=== PATIENT | male | born 1980 | race Two or more races ===

== ENCOUNTER 2025-03-09 10:49 | Emergency (ER) | payer SELFPAY ==
[~2025-03-09] VITALS: Ht 180.3 cm; Wt 101.4 kg
[2025-03-09 10:52] VITALS: BP 134/81; PULSE 88; RESP 15; TEMP 98.2; O2SAT 98
--- NOTE | 2025-03-09 12:06 | ED.PDOC ---
History of Present Illness HPI Comments 44 year old male requesting work clearance for new employment Chief Complaint: Abnormal LAB's Time Seen by MD: 11:04 Reviewed Notes: Nurses Notes, Medications, Allergies Allergies: Coded Allergies: NO KNOWN ALLERGIES (Unverified , 03/09/25) Information Source: Patient Mode of Arrival: Ambulatory Physical Exam General Appearance: No Apparent Distress, Normal HEENT: Normal ENT Inspection, Pharynx Normal, TMs Normal Neck: Full Range of Motion, Non-Tender, Normal, Normal Inspection Respiratory: Chest Non-Tender, Lungs Clear, No Accessory Muscle Use, No Respiratory Distress, Normal Breath Sounds Cardiovascular: No Edema, No JVD, No Murmur, No Gallop, Normal Peripheral Pulses, Regular Rate/Rhythm Breast Exam: Deferred Gastrointestinal: No Organomegaly, Non Tender, No Pulsatile Mass, Normal Bowel Sounds, Soft Genitalia: Deferred Pelvic: Deferred Rectal: Deferred Extremities: No calf tenderness, Normal capillary refill, Normal inspection, Normal range of motion, Non-tender, No pedal edema Musculoskeletal : Apperance: Normal Neurologic: Alert, 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 Was a procedure done?: No Differential Dx Considerations may include: clearance X-Ray, Labs, Meds, VS Vital Signs Date Time Temp Pulse Resp B/P (MAP) Pulse Ox O2 Delivery O2 Flow Rate FiO2 03/09/25 10:52 98.2 88 15 134/81 98 98.2 X-Ray, Labs, Meds, VS Comment Follow-up with PCP in 2 to 3 days Patient verbalized understanding and agreed to treatment plan Vital signs stable, afebrile, no acute distress noted Patient ambulatory with strong steady gait Patient is aware that the purpose of this visit was for an acute medical emergency requiring emergent stabilization. Chronic conditions, including malignancies have not been ruled out. Patient is instructed to follow up with PCP as directed and discharge instructions for continued care and workup. Time of 1ST Reevaluation: 12:00 Reevaluation 1ST: Improved Patient Education/Counseling: Diagnosis, Treatment Family Education/Counseling: Diagnosis, Treatment SEPSIS Sepsis Screen Date sepsis recognized/suspect: Mar 09, 2025 Time Sepsis recognized/suspect: 1053 Recent Procedure: No On Antibiotic Therapy: No Respiratory Rate >20: No Heart Rate >90: No Temp<36 C (96.8 F) or >38.3 C: No SBP <90 or MAP <65 mmHG: No New Acute Mental Status Change: No Is the patient on CPAP, BIPAP,: No Vital Signs Date Time Temp Pulse Resp B/P (MAP) Pulse Ox O2 Delivery O2 Flow Rate FiO2 03/09/25 10:52 98.2 88 15 134/81 98 98.2 Departure 1 Departure Time of Disposition: 12:00 Impression: Primary Impression: Wellness examination Disposition: HOME / SELF CARE / HOMELESS Condition: Stable Discharged With: Self Critical Care Note Critical Care Time?: No Stability Stability form required: No Heart Score Heart Score: Heart Score Response (Comments) Value History N/A 0 EKG N/A 0 Age N/A 0 Risk Factors N/A 0 Troponin N/A 0 Total 0 DEWEY WOLF NP Mar 09, 2025 12:06
== END 2025-03-09 12:17 | disposition home or self-care (01) ==
LOC: ER 10:49
DX: R79.9 Abnormal finding of blood chemistry, unspecified (principal)

== ENCOUNTER 2025-03-17 22:41 | Inpatient (IN) | payer MEDICAID ==
[~2025-03-17] VITALS: Ht 182.9 cm; Wt 101.4 kg
[2025-03-18] VITALS (7 sets, daily range): BP systolic 121–143; BP diastolic 70–88; PULSE 65–84; RESP 15–20; TEMP 98.1–100; O2SAT 93–97
[2025-03-18] MEDS: SODIUM CHLORIDE 0.9% 1,000 ML IV ONE ×2 (01:45→10:23)
[2025-03-18 02:03] LABS: Hematocrit 44.9 % (41.0-53.0); Hemoglobin 15.0 g/dL (13.5-17.5); Mean Corpuscular Hemoglobin 29.7 pg (28.0-32.0); Mean Corpuscular Volume 88.6 fL (80.0-100.0); Nucleated Red Blood Cells % 0.0 %
[2025-03-18 02:16] LABS: Alanine Aminotransferase 20 U/L (7-40); Albumin 4.7 g/dL (3.2-4.8); Anion Gap 5 (5-15); BUN/Creatinine Ratio 6.1 (10.0-20.0); Bilirubin, Total 0.4 mg/dL (0.2-1.0); Blood Urea Nitrogen 10 mg/dL (9-23); Calcium 9.4 mg/dL (8.7-10.4); Carbon Dioxide 26 mmol/L (20-31); Potassium 4.6 mmol/L (3.5-5.1); Sodium 139 mmol/L (136-145)
[2025-03-18 02:20] LABS: Alkaline Phosphatase 130 U/L (46-116); Chloride 108 mmol/L (98-107); Glucose 111 mg/dL (74-106); Lipase 60 U/L (12-53); Total Protein 8.9 g/dL (5.7-8.2)
--- NOTE | 2025-03-18 02:33 | ED.PDOC ---
GI ASSESSMENT HPI Comments HPI from visit on 03/17/25 This is a 44-year-old male who presents to the ED with a chief complaint of constipation for X4 days. Patient denies any medical history or this happening before. Patient reports taking laxatives and suppositories, with no relief. Denies fevers chills nausea vomiting HPI: 44 year old male presents to the emergency department with a chief complaint of constipation onset 5 days. Patient was seen in this ED yesterday, diagnosed with Colitis, was going to be admitted, left AMA. He was given medication, was able to have a small bowel movement, dark brown. He is currently experiencing rectal pain. Denies nausea, vomiting, diarrhea, fever, chills, dizziness, chest pain, shortness of breath, melena. No other symptoms or modifying factors present at this time. Initial Vitals BP: 142/88 HR: 87 RR: 20 O2: 98% Temp: 98.2F Past Medical History: Denies Past Surgical History: Denies Social History: Denies ETOH, smoking, and drug use. Medications: Denies Allergies: MANNY ZARAGOZA HPI: Poor Historian. REVIEW OF SYSTEMS: CONSTITUTIONAL: Denies acute: fever, diaphoresis, chills, generalized weakness. HEAD: Denies acute: headache, photophobia Eyes: Denies acute: Double vision, vision loss, eye pain, eye discharge. EARS: Denies acute: tinnitus, hearing loss, ear discharge, ear pain, THROAT: Denies acute: sore throat, swelling, difficulty swallowing , pain with swallowing, change in voice. NECK: Denies acute: neck pain, neck swelling, stiff neck. HEART: Denies acute : chest pain, palpitations, LUNGS: Denies acute: SOB, wheezing, cough, hemoptysis ABDOMEN: Denies acute: Nausea, Vomiting, diarrhea, melena , hematemesis, hematochezia SKIN: Denies acute: rash, redness, lesions, itchiness. EXTREMITIES: Denies acute: calf pain, numbness, tingling, weakness, denies pain in extremity. Denies acute: Low back pain. Neuro: Denies acute: focal neurological deficit, motor or sensory focal neurological deficit, tremors, seizure like activity, confusion, dizziness, change in mental status, loss of bowel or bladder function, cauda equina like symptoms. : Denies acute: dysuria, hematuria, flank pain, increase in urinary frequency. PSYCH: Denies acute: hallucination, suicidal ideation, homicidal ideation. PHYSICAL EXAM: General: ----moderate----acute distress, awake and alert. Head: normocephalic, atraumatic. Neck: supple, trachea is midline, no swelling. Throat: Normal phonation. Eyes:, no erythema, no purulent discharge, no proptosis, no icterus. Heart: regular rate, regular rhythm, no significant murmur appreciated. Lungs: no apparent respiratory distress, Able to speak in full sentences. No wheezing, no rhonchi, no crackles. No stridors Clear to auscultation bilaterally. Abdomen: non tender to palpation, non distended, soft, no guarding, no rebound, + bowel sounds. Patient states however that his pain is in the rectal area. Neuro: Awake, Alert, oriented to name, self, situation, follows commands GCS=15. Speech is normal. Skin: no petechia, no purpura, no cyanosis, non-pale, not jaundice. Lower extremities: --no - Pitting edema no deformity, no focal swelling, no calf TTP. Makes eye contact. moves all four extremities. Face: no apparent facial droop. Ambulating in the ED independently. ED COURSE: DISCLAIMER: This medical document was created using an electronic medical record system with voice recognition software and computerized dictation system. Although this document has been carefully reviewed, there might still be some phonetic and ty pographical errors. Occasional wrong-word or "sound-alike" substitutions may have occurred due to the inherent limitations of voice recognition software. These areas are purely typographical due to imperfections of the software programs and do not reflect any compromise in the patient's medical care. Please read the chart carefully and recognize, using context, where these substitutions have occurred. Chief Complaint: Constipation Time Seen by MD: 02:35 Reviewed Notes: Allergies Allergies: Coded Allergies: NO KNOWN ALLERGIES (Unverified , 03/16/25) Information Source: Patient Mode of Arrival: Ambulatory Timing: Days Duration: Since onset Past Medical History PAST MEDICAL HISTORY: Denies Surgical History: Denies all surgeries Family History Family History: Reviewed,noncontributory to illness, No family hx of Cancer, No family hx of DM, No family hx of Heart reuben, No family hx of HTN, No family hx ofKidney reuben, No family hx of Liver reuben, No family hx of Lung reuben, No family hx of Stroke Social History Smoker: Non-Smoker Alcohol: Denies ETOH Use Drugs: Denies Drug Use Lives In: Home Was a procedure done? Was a procedure done?: No GI differential Dx Differential Diagnosis: Other (DDX include Diverticulitis, colitis, gastroenteritis, acute abdomen, bowel obstruction, enteritis, constipation, volvulus, , intraAbdominal mass/neoplasm, Inflammatory bowel disease, ischemic bowel, gastroparesis, narcotics abuse/dependency, fecal impaction, low fiber intake.) X-Ray, Labs, Meds, VS Vital Signs Date Time Temp Pulse Resp B/P (MAP) Pulse Ox O2 Delivery O2 Flow Rate FiO2 03/18/25 04:42 99.1 75 20 120/73 (89) 97 99.1 03/17/25 22:46 98.2 87 20 142/88 98 98.2 Lab Test 03/18/25 01:40 Range/Units White Blood Count 17.5 H 4.4-10.8 10^3/uL Red Blood Count 5.07 4.5-5.90 10^6/uL Hemoglobin 15.0 13.5-17.5 g/dL Hematocrit 44.9 41.0-53.0 % Mean Corpuscular Volume 88.6 80.0-100.0 fL Mean Corpuscular Hemoglobin 29.7 28.0-32.0 pg Mean Corpuscular Hemoglobin Concent 33.5 32.0-36.0 g/dL Red Cell Distribution Width 14.9 H 11.8-14.3 % Platelet Count 267 140-450 10^3/uL Mean Platelet Volume 8.6 6.9-10.8 fL Neutrophils (%) (Auto) 76.5 37.0-80.0 % Lymphocytes (%) (Auto) 13.3 10.0-50.0 % Monocytes (%) (Auto) 9.9 0.0-12.0 % Eosinophils (%) (Auto) 0.1 0.0-7.0 % Basophils (%) (Auto) 0.2 0.0-2.0 % Neutrophils # (Auto) 13.4 H 1.6-8.6 10 ^3/uL Lymphocytes # (Auto) 2.3 0.4-5.4 10 ^3/uL Monocytes # (Auto) 1.7 H 0-1.3 10 ^3/uL Eosinophils # (Auto) 0 0-0.8 10 ^3/uL Basophils # (Auto) 0 0-0.2 10 ^3/uL Nucleated Red Blood Cells 0.0 % Sodium Level 139 136-145 mmol/L Potassium Level 4.6 3.5-5.1 mmol/L Chloride Level 108 H 98-107 mmol/L Carbon Dioxide Level 26 20-31 mmol/L Anion Gap 5 5-15 Blood Urea Nitrogen 10 9-23 mg/dL Creatinine 1.63 H 0.700-1.30 mg/dL Glomerular Filtration Rate Calc 54 >90 mL/min BUN/Creatinine Ratio 6.1 L 10.0-20.0 Serum Glucose 111 H 74-106 mg/dL Lactic Acid Level 1.0 0.4-2.0 mmol/L Calcium Level 9.4 8.7-10.4 mg/dL Total Bilirubin 0.4 0.2-1.0 mg/dL Aspartate Amino Transferase (AST) 17 13-40 U/L Alanine Aminotransferase (ALT) 20 7-40 U/L Alkaline Phosphatase 130 H 46-116 U/L Total Protein 8.9 H 5.7-8.2 g/dL Albumin 4.7 3.2-4.8 g/dL Lipase 60 H 12-53 U/L Current Medications Medications (Trade) Dose Ordered Sig/David Route Start Time Stop Time Status Last Admin Sodium Chloride 1,000 ml @ 1,000 mls/hr Q1H ONCE IV 03/18/25 01:45 03/18/25 02:44 DC 03/18/25 01:45 Metronidazole 100 ml @ 100 mls/hr ONCE ONCE IV 03/18/25 03:00 03/18/25 03:59 DC 03/18/25 03:[address] [address] Ph: [phone] DIAGNOSTIC IMAGING Diagnostic Imaging Report : [id number] Signed PATIENT: JAN ZARAGOZA ACCT: [id number] UNIT: [id number] : 1980 LOC: ER ROOM / BED: / AGE / SEX: 44 / M ADM STATUS: REG ER SERVICE [id number] ORDERING PHYSICIAN: DEWEY WOLF NP PROCEDURE(s): ABPL - CT AB PEL WO CON-NO ORAL OR IV REASON: Constipation and rectal pain ORDER NUMBER(s): [id number], ACCESSION NUMBER(s): [id number] CLINICAL INFORMATION: 44 years old, Male; Constipation and rectal pain. TECHNIQUE: Axial CT images of the abdomen and pelvis were obtained without IV contrast. Coronal and sagittal reformatted images were obtained, reviewed, and stored. Evaluation of the parenchymal organs is limited without IV contrast. Evaluation of the bowel and mesentery is limited without oral contrast. All CT scans at this medical facility are performed using dose modulation techniques as appropriate to a performed exam including the following: Automated exposure control was utilized; adjustment of the MA and/or KV according to patient size; and use of iterative reconstruction technique. CTDIvol = 11.85 mGy DLP = 655.97 mGy-cm COMPARISON: None FINDINGS: Lung bases: Lung bases are clear. Liver: Multiple low-density lesions are seen in the liver, the largest of which are fluid density and likely benign cysts. The smaller lesions are also likely cysts, but too small to characterize. Biliary: No calcified gallstones or biliary ductal dilatation. Spleen: Unremarkable. Pancreas: Grossly unremarkable in its noncontrast enhanced appearance. Adrenal glands: Unremarkable. No mass. Kidneys: No hydronephrosis. No renal or ureteral calculi. Aorta/Vascular: Moderate atherosclerotic calcification. No abdominal aortic aneurysm. Retroperitoneum: No mass or lymphadenopathy. Bowel/mesentery: No small bowel obstruction. No free air or free fluid. Appendix is visualized and appears unremarkable. There is mild wall thickening and adjacent vascular engorgement involving the cecum, ascending colon, hepatic flexure, and transverse colon, suspected colitis in the appropriate clinical setting. There are also areas of fatty replacement in the wall of the colon, which may be sequela of previous inflammation. There is moderate stool in the more distal portions of the colon and a few scattered colonic diverticula without adjacent inflammatory changes to suggest diverticulitis. Pelvic organs: Grossly unremarkable. Bladder: Unremarkable. No mass. Abdominal wall: Small fat containing umbilical hernia. Bones: No acute fracture or suspicious intraosseous lesion. IMPRESSION: 1. Findings suggesting colitis involving the cecum, ascending colon, hepatic flexure, and transverse colon as described above. May be infectious or inflammatory in nature. Correlate with clinical findings. 2. Additional nonacute findings as detailed above. ATED BY: CESAR RENEE DO DICTATED DATE/TIME: 03/17/25836 SIGNED BY: CESAR RENEE DO SIGNED DATE/TIME: 03/17/25836 CC: Time of 1ST Reevaluation: 03:05 Reevaluation 1ST: Unchanged Patient Education/Counseling: Diagnosis, Treatment Family Education/Counseling: No Family Present Comments MDM: patient presented with the above HPI.---abdominal pain/constipation---workup was initiated. patient was found with the above mentioned diagnosis. the following medications were ordered: please refer to order lists of meds and tests obtained by myself Dr. Pan. Patient ED course and VS have been stabilized. Patient has been reassessed in the ED and remained in a stable condition. Pertinent incidental findings were discussed with the patient and/or family. Patient/family voices understanding and is agreeable with plan. Patient has been observed in the ED adequate length of time to insure improvement/stability. Escalation of care considered: Consideration of escalation to observation or admission Antibiotics initiated. Patient was ADMITTED to the medicine team for further evaluation and treatment of their presentation. All the reports of any imaging studies that were ordered by myself were reviewed by myself. Departure 1 Departure Time of Disposition: 02:53 Impression: Primary Impression: Colitis Additional Impression: Leukocytosis Disposition: ADMITTED INPATIENT Admit to: Tele Condition: Guarded Discharged With: Self Critical Care Note Critical Care Time?: Yes (35 min-critical care time only) I personally scribed for SID PAN DO ([email or web address]) on 03/18/25 at 02:33. Electronically submitted by Marian You ([email or web address]). I personally scribed for SID PAN DO ([email or web address]) on 03/18/25 at 02:56. Electronically submitted by Marian You ([email or web address]). SDI PAN DO Mar 18, 2025 02:33
[2025-03-18] MEDS: fentaNYL CITRATE 100 MCG/2 ML VL IV ONE (05:39)
[2025-03-18 06:13] LABS: Urine Protein, UAD TRACE (Negative)
[2025-03-18] MEDS: MORPHINE SULFATE INJ 2 MG/ml SYRG IV ONE (09:39)
[2025-03-18] MEDS: GLYCERIN ADULT RECTAL SUPP PR ONE (09:39)
[2025-03-18] MEDS ORDERED: ONDANSETRON HCL 4 MG/2 ML VIAL IV PRN (09:45)
[2025-03-18] MEDS ORDERED: DOCUSATE SOD 100 MG CAP PO PRN (09:45)
[2025-03-18] MEDS ORDERED: MORPHINE SULFATE INJ 2 MG/ml SYRG IV PRN (09:45)
--- NOTE | 2025-03-18 09:50 | DVHHP2 ---
History of Present Illness Reason for Visit: abdominal/rectal pain History of Present Illness Damon Morales is a 44-year-old male with no significant past medical history who came to the hospital for abdominal and rectal pain. Patient was seen here yesterday for the same complaint, but had to leave AMA due to needing to take care of his children. He came back due to the pain worsening. CT scan compleeted yesterday shows colitis and constipation. Patient states colitis is a new diagnosis for him. Past Surgical History: None Smoke: <1 pack per day ALCOHOL: none Drugs: None Lives: with Family Domestic Violence: Neg Review of Systems Constitutional: No: Fever, Chills, Sweats, Weakness, Malaise, Other Eyes: No: Pain, Vision change, Conjunctivae inflammation, Eyelid inflammation, Other, Redness ENT: No: Ear pain, Ear discharge, Nose pain, Nose discharge, Nose congestion, Mouth pain, Mouth swelling, Throat pain, Throat swelling, Other Respiratory: No: Cough, Dry, Shortness of breath, SOB with excertion, Wheezing, Hemoptysis, Pleuritic Pain, Sputum, Wheezing, Other Cardiovascular: No: Chest Pain, Palpitations, Orthopnea, Paroxysmal Noc. Dyspnea, Edema, Lt Headedness, Other Gastrointestinal: Abdominal Pain (C/O severe rectal and pelvic pain), Constipation; No: Nausea, Vomiting, Diarrhea, Melena, Hematochezia, Other Genitourinary: No Dysuria, No Frequency, No Incontinence, No Hematuria, No Retention, No Other Musculoskeletal: No: other, neck pain, shoulder pain, arm pain, back pain, hand pain, leg pain, foot pain Skin: No: Rash, Lesions, Jaundice, Bruising, Other Neurological: No: Weakness, Numbness, Incoordination, Change in speech, Confusion, Seizures, Other Allergies: Coded Allergies: NO KNOWN ALLERGIES (Unverified , 03/16/25) Medications Current Medications Medications Dose Ordered Sig/David Route Start Time Stop Time Status Last Admin Dose Admin Acetaminophen/ Hydrocodone Bitart 1 tab Q4HP PRN PO 03/18/25 09:45 UNV Ondansetron HCl 4 mg Q4HP PRN IV 03/18/25 09:45 UNV Exam Vital Signs Vital Signs Date Time Temp Pulse Resp B/P (MAP) Pulse Ox O2 Delivery O2 Flow Rate FiO2 03/18/25 09:39 81 18 119/65 03/18/25 06:32 100 03/18/25 05:00 Room Air* 0 21 03/18/25 04:42 99.1 99.1 General Appearance: Alert, Oriented X3, Cooperative, moderate distress HEENT: Atraumatic, PERRLA Respiratory: Clear to auscultation, Normal air movement Cardiovascular: Regular rate, Normal S1, Normal S2 Abdominal: Normal bowel sounds, Other (C/O severe rectal and pelvic pain) Extremities: No clubbing, No cyanosis, No edema, Normal pulses, No tenderness/swelling Skin: No rashes, No significant lesion Neuro: Normal gait, Normal speech, Strength at 5/5 X4 ext Psych/Mental Status: Mental status NL, Mood NL Labs/Xrays Labs Test 03/18/25 05:55 03/18/25 01:40 Range/Units Urine Color Light-yellow Yellow Urine Clarity Clear Clear Urine pH 6.0 5.0-9.0 Urine Specific [place] 1.013 1.001-1.035 Urine Protein Trace H Negative Urine Ketones Negative Negative Urine Blood Negative Negative /uL Urine Nitrite Negative Negative Urine Bilirubin Negative Negative Urine Urobilinogen Normal Negative mg/dL Urine Leukocyte Esterase Negative Negative /uL Urine RBC <1 0 - 3 /hpf Urine Microscopic WBC 16 H 0-3 /HPF Urine Squamous Epithelial Cells Few <5 /hpf Urine Bacteria None seen None Seen /hpf Urine Mucus Few None Seen Urine Glucose Normal Normal mg/dL White Blood Count 17.5 H 4.4-10.8 10^3/uL Red Blood Count 5.07 4.5-5.90 10^6/uL Hemoglobin 15.0 13.5-17.5 g/dL Hematocrit 44.9 41.0-53.0 % Mean Corpuscular Volume 88.6 80.0-100.0 fL Mean Corpuscular Hemoglobin 29.7 28.0-32.0 pg Mean Corpuscular Hemoglobin Concent 33.5 32.0-36.0 g/dL Red Cell Distribution Width 14.9 H 11.8-14.3 % Platelet Count 267 140-450 10^3/uL Mean Platelet Volume 8.6 6.9-10.8 fL Neutrophils (%) (Auto) 76.5 37.0-80.0 % Lymphocytes (%) (Auto) 13.3 10.0-50.0 % Monocytes (%) (Auto) 9.9 0.0-12.0 % Eosinophils (%) (Auto) 0.1 0.0-7.0 % Basophils (%) (Auto) 0.2 0.0-2.0 % Neutrophils # (Auto) 13.4 H 1.6-8.6 10 ^3/uL Lymphocytes # (Auto) 2.3 0.4-5.4 10 ^3/uL Monocytes # (Auto) 1.7 H 0-1.3 10 ^3/uL Eosinophils # (Auto) 0 0-0.8 10 ^3/uL Basophils # (Auto) 0 0-0.2 10 ^3/uL Nucleated Red Blood Cells 0.0 % Sodium Level 139 136-145 mmol/L Potassium Level 4.6 3.5-5.1 mmol/L Chloride Level 108 H 98-107 mmol/L Carbon Dioxide Level 26 20-31 mmol/L Anion Gap 5 5-15 Blood Urea Nitrogen 10 9-23 mg/dL Creatinine 1.63 H 0.700-1.30 mg/dL Glomerular Filtration Rate Calc 54 >90 mL/min BUN/Creatinine Ratio 6.1 L 10.0-20.0 Serum Glucose 111 H 74-106 mg/dL Lactic Acid Level 1.0 0.4-2.0 mmol/L Calcium Level 9.4 8.7-10.4 mg/dL Total Bilirubin 0.4 0.2-1.0 mg/dL Aspartate Amino Transferase (AST) 17 13-40 U/L Alanine Aminotransferase (ALT) 20 7-40 U/L Alkaline Phosphatase 130 H 46-116 U/L Total Protein 8.9 H 5.7-8.2 g/dL Albumin 4.7 3.2-4.8 g/dL Lipase 60 H 12-53 U/L TECHNIQUE: Axial CT images of the abdomen and pelvis were obtained without IV contrast. FINDINGS: Lung bases: Lung bases are clear. Liver: Multiple low-density lesions are seen in the liver, the largest of which are fluid density and likely benign cysts. The smaller lesions are also likely cysts, but too small to characterize. Biliary: No calcified gallstones or biliary ductal dilatation. Spleen: Unremarkable. Pancreas: Grossly unremarkable in its noncontrast enhanced appearance. Adrenal glands: Unremarkable. No mass. Kidneys: No hydronephrosis. No renal or ureteral calculi. Aorta/Vascular: Moderate atherosclerotic calcification. No abdominal aortic aneurysm. Retroperitoneum: No mass or lymphadenopathy. Bowel/mesentery: No small bowel obstruction. No free air or free fluid. Appendix is visualized and appears unremarkable. There is mild wall thickening and adjacent vascular engorgement involving the cecum, ascending colon, hepatic flexure, and transverse colon, suspected colitis in the appropriate clinical setting. There are also areas of fatty replacement in the wall of the colon, which may be sequela of previous inflammation. There is moderate stool in the more distal portions of the colon and a few scattered colonic diverticula without adjacent inflammatory changes to suggest diverticulitis. Pelvic organs: Grossly unremarkable. Bladder: Unremarkable. No mass. Abdominal wall: Small fat containing umbilical hernia. Bones: No acute fracture or suspicious intraosseous lesion. IMPRESSION: 1. Findings suggesting colitis involving the cecum, ascending colon, hepatic flexure, and transverse colon as described above. May be infectious or inflammatory in nature. Correlate with clinical findings. 2. Additional nonacute findings as detailed above. SEPSIS Sepsis Screen Date sepsis recognized/suspect: Mar 18, 2025 Time Sepsis recognized/suspect: 05 Recent Procedure: No On Antibiotic Therapy: Yes Respiratory Rate >20: No Heart Rate >90: No Temp<36 C (96.8 F) or >38.3 C: No SBP <90 or MAP <65 mmHG: No New Acute Mental Status Change: No Is the patient on CPAP, BIPAP,: No Physician Orders Admit (03/18/25 09:38) Code Status (03/18/25 09:38) Hydrocodone-Acet 5/325mg Tab (Lometa 5/32 (03/18/25 09:45) Ondansetron Hcl (Zofran) (03/18/25 09:45) Docusate Sodium Capsule (Colace Capsule) (03/18/25 09:45) Complete Blood Count (03/19/25 04:00) Comprehensive Metabolic Panel (03/19/25 04:00) Condition: Serious (03/18/25 09:38) Acetaminophen Tablet (Tylenol Tablet) (03/18/25 09:45) Morphine Sulfate Injection (03/18/25 09:45) * Gi [facility] Store Host (03/18/25 09:38) NS (03/18/25 09:45) NS (03/18/25 09:45) Metronidazole Ivpb Flagyl (03/18/25 14:00) Ceftriaxone Ivpb Rocephin (03/19/25 09:00) Ceftriaxone Ivpb Rocephin (03/18/25 09:45) Vital Signs Date Time Temp Pulse Resp B/P (MAP) Pulse Ox O2 Delivery O2 Flow Rate FiO2 03/18/25 09:39 81 18 119/65 03/18/25 06:32 80 20 135/91 (106) 100 03/18/25 05:39 115/62 03/18/25 05:00 75 20 97 Room Air* 0 21 03/18/25 04:42 99.1 75 20 120/73 (89) 97 99.1 Laboratory Tests Test 03/18/25 01:40 Lactic Acid Level 1.0 mmol/L (0.4-2.0) White Blood Count 17.5 10^3/uL (4.4-10.8) H Medications Medications Dose Ordered Sig/David Route Start Time Stop Time Status Last Admin Dose Admin Fentanyl Citrate 100 mcg ONCE ONCE IV 03/18/25 05:30 03/18/25 05:31 DC 03/18/25 05:39 100 MCG Glycerin 1 supp ONCE ONCE IL 03/18/25 08:00 03/18/25 08:01 DC 03/18/25 09:39 1 SUPP Metronidazole 100 ml @ 100 mls/hr ONCE ONCE IV 03/18/25 03:00 03/18/25 03:59 DC 03/18/25 03:00 100 MLS/HR Morphine Sulfate 2 mg ONCE ONCE IV 03/18/25 08:00 03/18/25 08:01 DC 03/18/25 09:39 2 MG Sodium Chloride 1,000 ml @ 1,000 mls/hr Q1H ONCE IV 03/18/25 01:45 03/18/25 02:44 DC 03/18/25 01:45 1,000 MLS/HR Assessment/Plan Assessment/Plan Assessment: Colitis, Constipation, Acute kidney injury, Dehydration, Plan: Admit to Med-Surg, IV antibiotics, IV hydration, Suppository, Pain management, Clear liquid diet, Plan discussed with: Patient My Orders Orders - HERMINIA DEAN Procedure Category Date Status Time Admit ADMIT 03/18/25 Transmitted 09:38 Code Status CODE 03/18/25 Transmitted 09:38 Hydrocodone-Acet PHA 03/18/25 Transmitted 5/325mg Tab (Lometa 09:45 Ondansetron Hcl PHA 03/18/25 Transmitted (Zofran) 09:45 Docusate Sodium PHA 03/18/25 Transmitted Capsule (Colace 09:45 Complete Blood Count LAB 03/19/25 Verified 04:00 Comprehensive LAB 03/19/25 Verified Metabolic Panel 04:00 Condition: Serious SHWETHA 03/18/25 In Process 09:38 Acetaminophen Tablet PHA 03/18/25 Transmitted (Tylenol Tablet) 09:45 Morphine Sulfate PHA 03/18/25 Transmitted Injection 09:45 * Gi D[facility] Store Host CONS 03/18/25 Transmitted 09:38 NS PHA 03/18/25 Transmitted 09:45 NS PHA 03/18/25 Transmitted 09:45 Metronidazole Ivpb PHA 03/18/25 Transmitted Flagyl 14:00 Ceftriaxone Ivpb PHA 03/19/25 Transmitted Rocephin 09:00 Ceftriaxone Ivpb PHA 03/18/25 Transmitted Rocephin 09:45 Date of Service: Mar 18, 2025 Billing Provider: HERMINIA DEAN Common Visit Codes: [id number] INP/OBS CARE (MOD) HERMINIA DEAN Mar 18, 2025 09:49
[2025-03-18] MEDS: SODIUM CHLORIDE 0.9% 1,000 ML IV SCH (10:24)
[2025-03-18] MEDS: HYDROcodone-ACET 5/325MG TAB PO PRN (11:33)
--- NOTE | 2025-03-18 13:55 | DVHINCON2 ---
GI Consult Consult Note GI consult note Date of Consultation: 03/18/2025 Chief Complaint: Colitis Referring Physician: Isatu HALE H&P: 44-year-old male seen in ER holding H 7 with complains of abdominal and rectal pain. Patient complains of severe rectal pain about last five days and says it is 10 on 10 scale. Last bowel movement today after one dose of lactulose, small amount only, no melena or red blood in stool. No nausea or vomiting. Denies history of hemorrhoids. No colonoscopy in past Past Medical History: None Past Surgical History: None Social History: + cigarette smoking, denies drinking ETOH and use of illegal drugs. Family History: Noncontributory Review of Systems: Constitutional: no fever, chill, weight loss HEENT: no eye pain, no hearing loss, no oral lesion, no scleral icterus Heart: no chest pain, no chest pressure Lung: no cough, no dyspnea with exertion Abdomen: see HPI Physical exam: General: NAD, AAOX3 Chest: lung lion clear to auscultation Heart: RRR, no murmur Abdomen: non-distended, no tenderness to palpation, +BS Labs: Labs Test 03/18/25 05:55 03/18/25 01:40 Range/Units Urine Color Light-yellow Yellow Urine Clarity Clear Clear Urine pH 6.0 5.0-9.0 Urine Specific [place] 1.013 1.001-1.035 Urine Protein Trace H Negative Urine Ketones Negative Negative Urine Blood Negative Negative /uL Urine Nitrite Negative Negative Urine Bilirubin Negative Negative Urine Urobilinogen Normal Negative mg/dL Urine Leukocyte Esterase Negative Negative /uL Urine RBC <1 0 - 3 /hpf Urine Microscopic WBC 16 H 0-3 /HPF Urine Squamous Epithelial Cells Few <5 /hpf Urine Bacteria None seen None Seen /hpf Urine Mucus Few None Seen Urine Glucose Normal Normal mg/dL White Blood Count 17.5 H 4.4-10.8 10^3/uL Red Blood Count 5.07 4.5-5.90 10^6/uL Hemoglobin 15.0 13.5-17.5 g/dL Hematocrit 44.9 41.0-53.0 % Mean Corpuscular Volume 88.6 80.0-100.0 fL Mean Corpuscular Hemoglobin 29.7 28.0-32.0 pg Mean Corpuscular Hemoglobin Concent 33.5 32.0-36.0 g/dL Red Cell Distribution Width 14.9 H 11.8-14.3 % Platelet Count 267 140-450 10^3/uL Mean Platelet Volume 8.6 6.9-10.8 fL Neutrophils (%) (Auto) 76.5 37.0-80.0 % Lymphocytes (%) (Auto) 13.3 10.0-50.0 % Monocytes (%) (Auto) 9.9 0.0-12.0 % Eosinophils (%) (Auto) 0.1 0.0-7.0 % Basophils (%) (Auto) 0.2 0.0-2.0 % Neutrophils # (Auto) 13.4 H 1.6-8.6 10 ^3/uL Lymphocytes # (Auto) 2.3 0.4-5.4 10 ^3/uL Monocytes # (Auto) 1.7 H 0-1.3 10 ^3/uL Eosinophils # (Auto) 0 0-0.8 10 ^3/uL Basophils # (Auto) 0 0-0.2 10 ^3/uL Nucleated Red Blood Cells 0.0 % Sodium Level 139 136-145 mmol/L Potassium Level 4.6 3.5-5.1 mmol/L Chloride Level 108 H 98-107 mmol/L Carbon Dioxide Level 26 20-31 mmol/L Anion Gap 5 5-15 Blood Urea Nitrogen 10 9-23 mg/dL Creatinine 1.63 H 0.700-1.30 mg/dL Glomerular Filtration Rate Calc 54 >90 mL/min BUN/Creatinine Ratio 6.1 L 10.0-20.0 Serum Glucose 111 H 74-106 mg/dL Lactic Acid Level 1.0 0.4-2.0 mmol/L Calcium Level 9.4 8.7-10.4 mg/dL Total Bilirubin 0.4 0.2-1.0 mg/dL Aspartate Amino Transferase (AST) 17 13-40 U/L Alanine Aminotransferase (ALT) 20 7-40 U/L Alkaline Phosphatase 130 H 46-116 U/L Total Protein 8.9 H 5.7-8.2 g/dL Albumin 4.7 3.2-4.8 g/dL Lipase 60 H 12-53 U/L Imaging: CT abdomen pelvis IMPRESSION: 1. Findings suggesting colitis involving the cecum, ascending colon, hepatic flexure, and transverse colon as described above. May be infectious or inflammatory in nature. Correlate with clinical findings. 2. Additional nonacute findings as detailed above. Assessment: Colitis Abdominal pain Rectal pain Plan: Discussed with Dr. Pickens IV antibiotics Stool for WBC and bacterial culture IBD panel Anusol suppositories Stool softeners Possible colonoscopy to be considered if symptoms persist Plan discussed with patient and RN Thank you for this consult Date of Service: Mar 18, 2025 Billing Provider: MARLENA ONEIL Common Visit Codes: CONSULT ONLY Consultation Codes: [id number] CONSULT <60MIN MARLENA ONEIL Mar 18, 2025 13:55
[2025-03-18] MEDS: LACTULOSE 20Gm/30ML SOLN PO PRN (15:30)
[2025-03-18] MEDS: HYDROCORTISONE ACET 25 MG RECTAL SUPP PR SCH (23:44)
[2025-03-19] VITALS (7 sets, daily range): BP systolic 108–137; BP diastolic 71–95; PULSE 69–112; RESP 17–20; TEMP 98.1–101; O2SAT 96–98
[2025-03-19 06:45] LABS: Hematocrit 39.1 % (41.0-53.0); Hemoglobin 13.6 g/dL (13.5-17.5); Mean Corpuscular Hemoglobin 30.4 pg (28.0-32.0); Mean Corpuscular Volume 87.8 fL (80.0-100.0); Nucleated Red Blood Cells % 0.0 %
[2025-03-19 07:14] LABS: Alanine Aminotransferase 14 U/L (7-40); Albumin 4.1 g/dL (3.2-4.8); Anion Gap 6 (5-15); BUN/Creatinine Ratio 6.6 (10.0-20.0); Calcium 8.8 mg/dL (8.7-10.4); Carbon Dioxide 27 mmol/L (20-31); Chloride 106 mmol/L (98-107); Glucose 96 mg/dL (74-106); Potassium 3.6 mmol/L (3.5-5.1); Sodium 139 mmol/L (136-145); Total Protein 7.7 g/dL (5.7-8.2)
[2025-03-19 07:15] LABS: Alkaline Phosphatase 117 U/L (46-116); Bilirubin, Total 0.5 mg/dL (0.2-1.0); Blood Urea Nitrogen 8 mg/dL (9-23)
[2025-03-19] MEDS: ACETAMINOPHEN 325 MG TAB PO PRN (08:08)
--- NOTE | 2025-03-19 10:34 | DVHPN2 ---
Progress Note Date Seen: Mar 19, 2025 Resident Creating Document: RED SCALES RESIDENT Medical Necessity Reason Pt with a Central, PICC or Fol: No Subjective Review of Systems Patient is a 44-year-old male who initially came to the ER on 03/16/2025 for complaints of constipation, however left against medical advice due to personal reasons. Yesterday on 03/18/2025 patient again presented to the ER this time with complaints of abdominal pain, rectal pain and nausea. CT abdomen pelvis showed findings suggesting colitis involving the cecum, ascending colon, hepatic flexure and transverse colon which may be infectious or inflammatory in nature. Today, patient was seen and examined at bedside, denies any diarrhea, nausea, rectal pain or abdominal pain. Overnight patient was noted to have fevers as high as 101 [place] [id number], patient notes he has a boil on his buttocks that has been present for the last 3-4 days, describes it as fluctuant and tender. Patient notes he popped the boil last night. Patient also notes he frequently gets similar but smaller lesions on his face along with ingrown hairs. Patient also endorses smoking for the last 10 years. Denies any past medical history of diabetes, dyslipidemia. Objective vital signs Vital Sign Date Time Temp Pulse Resp B/P (MAP) Pulse Ox O2 Delivery O2 Flow Rate FiO2 03/19/25 08:42 101.0 80 20 114/71 (85) 98 101.0 03/19/25 08:15 Room Air* 0 21 Total Intake and Output 03/18/25 03/18/25 03/19/25 15:00 23:00 07:00 Intake Total 600 ml 480 ml 340 ml Output Total 900 ml Balance -300 ml 480 ml 340 ml medications Current Medications Medications Dose Ordered Sig/David Route Start Time Stop Time Status Last Admin Dose Admin Acetaminophen/ Hydrocodone Bitart 1 tab Q4HP PRN PO 03/18/25 09:45 03/18/25 20:07 1 TAB Ondansetron HCl 4 mg Q4HP PRN IV 03/18/25 09:45 Docusate Sodium 100 mg BIDPRN PRN PO 03/18/25 09:45 Acetaminophen 650 mg Q6HP PRN PO 03/18/25 09:45 03/19/25 08:08 650 MG Morphine Sulfate 2 mg Q4HPRN PRN IV 03/18/25 09:45 Sodium Chloride 1,000 ml @ 125 mls/hr Q8H IV 03/18/25 09:45 03/19/25 09:46 125 MLS/HR Metronidazole 100 ml @ 100 mls/hr Q8HR IV 03/18/25 14:00 03/19/25 06:17 100 MLS/HR Ceftriaxone Sodium 50 ml @ 100 mls/hr DAILY@09 IV 03/19/25 09:00 03/19/25 09:46 100 MLS/HR Lactulose 30 ml BIDPRN PRN PO 03/18/25 13:15 03/18/25 23:09 30 ML Hydrocortisone Acetate 25 mg Q12HR FL 03/18/25 22:00 03/18/25 23:44 25 MG Examination General Appearance: Cooperative. Well developed. Well nourished. NAD Head Exam: Normal inspection Neck Exam: Normal inspection. Non-tender. Normal alignment Pulmonary/Respiratory: Chest non-tender. Clear bilateral breath sounds, no crackles, no wheezing. Cardiovascular/Chest: Regular rate and rhythm. No murmurs. No JVD. Abdominal Exam: Normal bowel sounds. Soft. normal abdomen, no visible veins, Nontender. No hepatospenomegaly. No masses Neuro/Mental Status: A&O x4. Coherent. Thoughts/Psych: Normal thought pattern. Appropriate mood and affect. Good judgement and insight laboratory and microbiology Laboratory Tests 03/19/25 04:54 Test 03/19/25 04:54 Range/Units Serum Glucose 96 74-106 mg/dL Labs and/or images reviewed: Labs reviewed by me, Image(s) reviewed by me Problem List/Assessment/Plan Problem List/Assessment/Plan Infectious versus inflammatory colitis Probable cutaneous abscess versus furuncle versus carbuncle of the buttock Sepsis due to above ROZINA, likely hemodynamically mediated/VMN Obesity class 1 Nicotine dependence Plan: Hydration Continue ceftriaxone and metronidazole Pancultures Consider cultures from the boil Consider Gram-positive coverage Acetaminophen as needed for fever colonoscopy once medically stable Thank you so much for the opportunity to consult on your patient. GI team will follow the patient. In case of any questions or concerns please feel free to reach out. Plan discussed with Dr. Pickens Plan discussed with: Patient, Other (DINO Dotson) My Orders My Orders Orders - RED SCALES RESIDENT Procedure Category Date Status Time Blood Culture JORGE 03/19/25 Logged 08:58 RED SCALES RESIDENT Mar 19, 2025 10:34
--- NOTE | 2025-03-19 12:11 | DVH ---
CHEST RADIOGRAPH Indication: cough, 5-10pk year hx Technique: XY CHEST PORTABLE Comparison: None FINDINGS: The cardiac silhouette is unremarkable. The lungs demonstrate no pulmonary airspace consolidation. Th e pulmonary vasculature is unremarkable. There is no pleural effusion. There is no pneumothorax. IMPRESSION: No pulmonary airspace consolidation.
--- NOTE | 2025-03-19 14:41 | DVHPN2 ---
Subjective patient admitted for abdominal pain noted to have fever this morning relates no abdominal pain but was having rectal pain also relates hx of boil in rectal area that he thinks popped this morning Reviewed: Care Plan Review of systems negative except per HPI Changes from previous H/P or p: No Changes, Changes Eyes: No Pain, No Vision change, No Conjunctivae inflammation, No Eyelid inflammation, No Other, No Redness ENT: No Ear pain, No Ear discharge, No Nose pain, No Nose discharge, No Nose congestion, No Mouth pain, No Mouth swelling, No Throat pain, No Throat swelling, No Other Cardiovascular: No Chest Pain, No Palpitations, No Orthopnea, No Paroxysmal Noc. Dyspnea, No Edema, No Lt Headedness, No Other Respiratory: No Cough, No Dry, No Shortness of breath, No SOB with excertion, No Wheezing, No Hemoptysis, No Pleuritic Pain, No Sputum, No Other Gastrointestinal: No Nausea, No Vomiting; Abdominal Pain (C/O severe rectal and pelvic pain); No Diarrhea; Constipation; No Melena, No Hematochezia, No Other Genitourinary: No Dysuria, No Frequency, No Incontinence, No Hematuria, No Retention, No Other Musculoskeletal: No other, No neck pain, No shoulder pain, No arm pain, No back pain, No hand pain, No leg pain, No foot pain Skin: No Rash, No Lesions, No Jaundice, No Bruising, No Other Objective Vitals Vital Signs Date Time Temp Pulse Resp B/P (MAP) Pulse Ox O2 Delivery O2 Flow Rate FiO2 03/19/25 08:42 101.0 80 20 114/71 (85) 98 101.0 03/19/25 08:15 Room Air* 0 21 Intake/Output Intake and Output 03/19/25 07:00 Intake Total 1420 ml Output Total 900 ml Balance 520 ml Intake Oral 720 ml IV Total 700 ml Output Urine Total 900 ml # Voids 3 Exam GEN: Alert and oriented CV: RRR Lung: CTAB abd: Soft/non tender ext: no edema Medications Current Medications Medications Dose Ordered Sig/David Route Start Time Stop Time Status Last Admin Dose Admin Acetaminophen/ Hydrocodone Bitart 1 tab Q4HP PRN PO 03/18/25 09:45 03/18/25 20:07 1 TAB Ondansetron HCl 4 mg Q4HP PRN IV 03/18/25 09:45 Docusate Sodium 100 mg BIDPRN PRN PO 03/18/25 09:45 Acetaminophen 650 mg Q6HP PRN PO 03/18/25 09:45 03/19/25 08:08 650 MG Morphine Sulfate 2 mg Q4HPRN PRN IV 03/18/25 09:45 Sodium Chloride 1,000 ml @ 125 mls/hr Q8H IV 03/18/25 09:45 03/19/25 09:46 125 MLS/HR Metronidazole 100 ml @ 100 mls/hr Q8HR IV 03/18/25 14:00 03/19/25 06:17 100 MLS/HR Ceftriaxone Sodium 50 ml @ 100 mls/hr DAILY@09 IV 03/19/25 09:00 03/19/25 09:46 100 MLS/HR Lactulose 30 ml BIDPRN PRN PO 03/18/25 13:15 03/18/25 23:09 30 ML Hydrocortisone Acetate 25 mg Q12HR AR 03/18/25 22:00 03/18/25 23:44 25 MG Vancomycin HCl 0 ml @ 0 mls/hr UD IV 03/19/25 14:45 UNV Laboratory Results Laboratory Tests 03/19/25 04:54 Chemistry Test 03/19/25 04:54 Albumin 4.1 g/dL (3.2-4.8) Calcium Level 8.8 mg/dL (8.7-10.4) Total Protein 7.7 g/dL (5.7-8.2) LFT Test 03/19/25 04:54 Alanine Aminotransferase (ALT) 14 U/L (7-40) Alkaline Phosphatase 117 U/L (46-116) H Aspartate Amino Transferase (AST) 16 U/L (13-40) Total Bilirubin 0.5 mg/dL (0.2-1.0) Urinalysis Test 03/18/25 05:55 Urine Color Light-yellow (Yellow) Urine Clarity Clear (Clear) Urine pH 6.0 (5.0-9.0) Urine Specific [place] 1.013 (1.001-1.035) Urine Protein Trace (Negative) H Urine Ketones Negative (Negative) Urine Blood Negative /uL (Negative) Urine Nitrite Negative (Negative) Urine Bilirubin Negative (Negative) Urine Urobilinogen Normal mg/dL (Negative) Urine Leukocyte Esterase Negative /uL (Negative) Urine RBC <1 /hpf (0 - 3) Urine Microscopic WBC 16 /HPF (0-3) H Urine Squamous Epithelial Cells Few /hpf (<5) Urine Bacteria None seen /hpf (None Seen) Urine Mucus Few (None Seen) Urine Glucose Normal mg/dL (Normal) Labs and/or images reviewed: Labs reviewed by me, Image(s) reviewed by me Assessment/Plan Assessment/Plan 44 yo M with: #Abdominal pain #Rectal pain #Rectal abscess vs boil -colitis as seen on CT imaging -c/w Ceftriaxone, flagyl. add vanco given boil -GI consulted -diet: liquid diet. #SIRS/Sepsis -with fever, leukocytosis -broad spectrum abx -blood cx ordered #Acute renal failure -monitor renal function -supportive care Plan discussed with: Patient My Orders Orders - JUAN GILL MD Procedure Category Date Status Time Vancomycin Per PHA 03/19/25 Logged Pharmacy 14:45 Problem List: (1) Leukocytosis (2) Colitis Date of Service: Mar 19, 2025 Billing Provider: JUAN GILL MD Common Visit Codes: [id number] INP/OBS CARE(MOD) JUAN GILL MD Mar 19, 2025 14:41
[2025-03-19] MEDS ORDERED: VANCOMYCIN PER PHARMACY 0 MG IV SCH (14:45)
[2025-03-19 15:27] LABS: Hematocrit 39.7 % (41.0-53.0); Hemoglobin 13.4 g/dL (13.5-17.5); Mean Corpuscular Hemoglobin 29.6 pg (28.0-32.0); Mean Corpuscular Volume 87.7 fL (80.0-100.0); Nucleated Red Blood Cells % 0.1 %
[2025-03-19 15:39] LABS: Alanine Aminotransferase 14 U/L (7-40); Albumin 3.8 g/dL (3.2-4.8); Alkaline Phosphatase 102 U/L (46-116); Anion Gap 2 (5-15); BUN/Creatinine Ratio 7.7 (10.0-20.0); Bilirubin, Total 0.3 mg/dL (0.2-1.0); Blood Urea Nitrogen 9 mg/dL (9-23); Carbon Dioxide 28 mmol/L (20-31); Glucose 105 mg/dL (74-106); Sodium 138 mmol/L (136-145); Total Protein 7.6 g/dL (5.7-8.2)
[2025-03-19 15:41] LABS: Calcium 8.7 mg/dL (8.7-10.4); Chloride 108 mmol/L (98-107); Potassium 3.3 mmol/L (3.5-5.1)
[2025-03-19] MEDS: VANCOMYCIN 1GM/250ML KIT 250 ML IV SCH (16:54)
[2025-03-20 00:45] VITALS: BP 125/74; PULSE 86; RESP 19; TEMP 98.4; O2SAT 99
[2025-03-20 05:00] VITALS: BP 127/85; PULSE 69; RESP 19; TEMP 98.1; O2SAT 99
[2025-03-20 07:25] LABS: Hematocrit 37.7 % (41.0-53.0); Hemoglobin 12.9 g/dL (13.5-17.5); Mean Corpuscular Hemoglobin 29.8 pg (28.0-32.0); Mean Corpuscular Volume 87.2 fL (80.0-100.0); Nucleated Red Blood Cells % 0.0 %
[2025-03-20] MEDS: POTASSIUM EFFERVESENT TAB 25 MEQ PO ONE (08:54)
[2025-03-20 09:00] VITALS: BP 131/86; PULSE 82; RESP 18; TEMP 98.3; O2SAT 98
[2025-03-20 09:14] LABS: Sodium 140 mmol/L (136-145)
[2025-03-20 09:15] LABS: Anion Gap 4 (5-15); Carbon Dioxide 25 mmol/L (20-31)
[2025-03-20 09:16] LABS: Calcium 8.7 mg/dL (8.7-10.4)
[2025-03-20 09:21] LABS: BUN/Creatinine Ratio 8.1 (10.0-20.0); Blood Urea Nitrogen 9 mg/dL (9-23); Chloride 111 mmol/L (98-107); Glucose 113 mg/dL (74-106); Potassium 3.3 mmol/L (3.5-5.1)
--- NOTE | 2025-03-20 11:14 | DVHPN2 ---
Progress Note Date Seen: Mar 20, 2025 Resident Creating Document: RED SCALES RESIDENT Medical Necessity Reason Pt with a Central, PICC or Fol: No Subjective Review of Systems Patient is a 44-year-old male who initially came to the ER on 03/16/2025 for complaints of constipation, however left against medical advice due to personal reasons. Yesterday on 03/18/2025 patient again presented to the ER this time with complaints of abdominal pain, rectal pain and nausea. CT abdomen pelvis showed findings suggesting colitis involving the cecum, ascending colon, hepatic flexure and transverse colon which may be infectious or inflammatory in nature. Today, patient was seen and examined at bedside, denies any diarrhea, nausea, rectal pain or abdominal pain. Improved WBC, improved fevers Objective vital signs Vital Sign Date Time Temp Pulse Resp B/P (MAP) Pulse Ox O2 Delivery O2 Flow Rate FiO2 03/20/25 09:00 98.3 82 18 131/86 (101) 98 98.3 03/19/25 20:00 Room Air* 0 21 Total Intake and Output 03/19/25 03/19/25 03/20/25 15:00 23:00 07:00 Intake Total 537.5 ml 2018 ml 1000 ml Balance 537.5 ml 2018 ml 1000 ml medications Current Medications Medications Dose Ordered Sig/David Route Start Time Stop Time Status Last Admin Dose Admin Acetaminophen/ Hydrocodone Bitart 1 tab Q4HP PRN PO 03/18/25 09:45 03/18/25 20:07 1 TAB Ondansetron HCl 4 mg Q4HP PRN IV 03/18/25 09:45 Docusate Sodium 100 mg BIDPRN PRN PO 03/18/25 09:45 Acetaminophen 650 mg Q6HP PRN PO 03/18/25 09:45 03/19/25 08:08 650 MG Morphine Sulfate 2 mg Q4HPRN PRN IV 03/18/25 09:45 Sodium Chloride 1,000 ml @ 125 mls/hr Q8H IV 03/18/25 09:45 03/20/25 08:22 125 MLS/HR Metronidazole 100 ml @ 100 mls/hr Q8HR IV 03/18/25 14:00 03/20/25 05:13 100 MLS/HR Ceftriaxone Sodium 50 ml @ 100 mls/hr DAILY@09 IV 03/19/25 09:00 03/19/25 09:46 100 MLS/HR Lactulose 30 ml BIDPRN PRN PO 03/18/25 13:15 03/18/25 23:09 30 ML Hydrocortisone Acetate [address] 03/18/25 22:00 03/18/25 23:44 25 MG Vancomycin HCl 0 ml @ 0 mls/hr UD IV 03/19/25 14:45 Vancomycin HCl 250 ml @ 200 mls/hr Q8H IV 03/19/25 16:00 03/20/25 08:22 200 MLS/HR Examination General Appearance: Cooperative. Well developed. Well nourished. NAD Head Exam: Normal inspection Neck Exam: Normal inspection. Non-tender. Normal alignment Pulmonary/Respiratory: Chest non-tender. Clear bilateral breath sounds, no crackles, no wheezing. Cardiovascular/Chest: Regular rate and rhythm. No murmurs. No JVD. Abdominal Exam: Normal bowel sounds. Soft. normal abdomen, no visible veins, Nontender. No hepatospenomegaly. No masses Neuro/Mental Status: A&O x4. Coherent. Thoughts/Psych: Normal thought pattern. Appropriate mood and affect. Good judgement and insight laboratory and microbiology Laboratory Tests 03/20/25 06:00 Test 03/20/25 06:00 Range/Units Serum Glucose 113 H 74-106 mg/dL Microbiology Date/Time Source Procedure Growth Status 03/19/25 10:34 Blood Blood Culture - Preliminary NO GROWTH AFTER 24 HOURS OF INCUBATION. Resulted Labs and/or images reviewed: Labs reviewed by me, Image(s) reviewed by me Problem List/Assessment/Plan Problem List/Assessment/Plan Infectious versus inflammatory colitis Probable cutaneous abscess versus furuncle versus carbuncle of the buttock Sepsis due to above ROZINA, likely hemodynamically mediated/VMN Obesity class 1 Nicotine dependence Plan: Hydration Continue ceftriaxone and metronidazole Pancultures Consider cultures from the boil Consider Gram-positive coverage Acetaminophen as needed for fever Colonoscopy was recommended with the patient, however, patient refused. Details of the pathology and the procedure of colonoscopy was explained to the patient and at bedside, all questions and concerns were addressed. Patient continued to refuse colonoscopy. Was instructed to follow up with PCP and GI in the outpatient clinic. Thank you so much for the opportunity to consult on your patient. GI team will follow the patient. In case of any questions or concerns please feel free to reach out. Plan discussed with Dr. Pickens Plan discussed with: Patient, Spouse, Other (RN) RDE SCALES RESIDENT Mar 20, 2025 11:14
[2025-03-20] MEDS ORDERED: BACDST PO (12:39)
[2025-03-20 12:51] VITALS: BP 118/84; PULSE 84; RESP 19; TEMP 98.5; O2SAT 97
[2025-03-20 13:58] VITALS: TEMP 36.9
--- NOTE | 2025-03-20 15:09 | DVHDS2 ---
Discharge Summary Date of Admission Mar 18, 2025 at 09:38 Date of Discharge: Mar 20, 2025 Admitting Diagnosis SIRS, colitis, ROZINA, rectal pain Labs/Diagnostic Data: Laboratory Results Test 03/20/25 06:00 03/19/25 15:11 03/19/25 04:54 03/18/25 05:55 White Blood Count 12.9 10^3/uL (4.4-10.8) Red Blood Count 4.32 10^6/uL (4.5-5.90) Hemoglobin 12.9 g/dL (13.5-17.5) Hematocrit 37.7 % (41.0-53.0) Mean Corpuscular Volume 87.2 fL (80.0-100.0) Mean Corpuscular Hemoglobin 29.8 pg (28.0-32.0) Mean Corpuscular Hemoglobin Concent 34.2 g/dL (32.0-36.0) Red Cell Distribution Width 14.4 % (11.8-14.3) Platelet Count 237 10^3/uL (140-450) Mean Platelet Volume 8.9 fL (6.9-10.8) Neutrophils (%) (Auto) 65.9 % (37.0-80.0) Lymphocytes (%) (Auto) 21.5 % (10.0-50.0) Monocytes (%) (Auto) 11.9 % (0.0-12.0) Eosinophils (%) (Auto) 0.4 % (0.0-7.0) Basophils (%) (Auto) 0.3 % (0.0-2.0) Neutrophils # (Auto) 8.5 10 ^3/uL (1.6-8.6) Lymphocytes # (Auto) 2.8 10 ^3/uL (0.4-5.4) Monocytes # (Auto) 1.5 10 ^3/uL (0-1.3) Eosinophils # (Auto) 0 10 ^3/uL (0-0.8) Basophils # (Auto) 0 10 ^3/uL (0-0.2) Nucleated Red Blood Cells 0.0 % Sodium Level 140 mmol/L (136-145) Potassium Level 3.3 mmol/L (3.5-5.1) Chloride Level 111 mmol/L (98-107) Carbon Dioxide Level 25 mmol/L (20-31) Anion Gap 4 (5-15) Blood Urea Nitrogen 9 mg/dL (9-23) Creatinine 1.11 mg/dL (0.700-1.30) Glomerular Filtration Rate Calc 85 mL/min (>90) BUN/Creatinine Ratio 8.1 (10.0-20.0) Serum Glucose 113 mg/dL (74-106) Hemoglobin A1c 5.7 % A1C (<5.7) Calcium Level 8.7 mg/dL (8.7-10.4) Total Bilirubin 0.3 mg/dL (0.2-1.0) Aspartate Amino Transferase (AST) 16 U/L (13-40) Alanine Aminotransferase (ALT) 14 U/L (7-40) Alkaline Phosphatase 102 U/L (46-116) Total Protein 7.6 g/dL (5.7-8.2) Albumin 3.8 g/dL (3.2-4.8) Urine Color Light-yellow (Yellow) Urine Clarity Clear (Clear) Urine pH 6.0 (5.0-9.0) Urine Specific [place] 1.013 (1.001-1.035) Urine Protein Trace (Negative) Urine Ketones Negative (Negative) Urine Blood Negative /uL (Negative) Urine Nitrite Negative (Negative) Urine Bilirubin Negative (Negative) Urine Urobilinogen Normal mg/dL (Negative) Urine Leukocyte Esterase Negative /uL (Negative) Urine RBC <1 /hpf (0 - 3) Urine Microscopic WBC 16 /HPF (0-3) Urine Squamous Epithelial Cells Few /hpf (<5) Urine Bacteria None seen /hpf (None Seen) Urine Mucus Few (None Seen) Urine Glucose Normal mg/dL (Normal) Test 03/18/25 01:40 Lactic Acid Level 1.0 mmol/L (0.4-2.0) Lipase 60 U/L (12-53) Other Laboratory Tests 03/20/25 06:00 Brief Hx & Hospital Course: 44-year-old male, unremarkable past medical history presenting for evaluation of abdominal pain, rectal pain and fever. He was admitted for evaluation with findings on CT imaging of colitis. (CT imaging showing colitis in cecum, ascending colon, hepatic flexure, transverse colon) He was also seen by Gastroenterology with recommendation for colonoscopy for workup of malignancy versus inflammatory bowel disease. Patient deferred for outpatient. He relates a history of boils/small abscesses. He had evidence of small boil that popped in rectal area. He also had evidence of mild acute renal failure that resolved with supportive care and fluids. Blood culture negative to date on discharge Condition at Discharge: Good Final Diagnosis/Problems List colitis Rectal pain, small rectal abscess Sirs Acute renal failure Discharge Disposition: Home Discharge Instruct/Medications Diet: Regular Activity: No Restrictions, As Tolerated Scheduled Sulfamethoxazole W/Trimethopri (Bactrim Ds Tablet), 1 TAB PO BID Discharge Statement: "Patient was advised to return to the ER or call 911 if any headaches, dizziness, shortness of breath, chest pain, abdominal pain, bleeding, fevers, or worsening of medical condition. Patient was counseled about treatment plan, medications, possible side effects, patientverbalized understanding. All questions were answered to the best of my ability. This discharge took greater then 30 minutes in planning, reviewing documentation, counseling the patient, and discussing with other team members." Discharge Care Plan Problem Increase in fluid intake ASSESSMENT ASSESSMENT Assessment colitis Date of Service: Mar 20, 2025 Billing Provider: JUAN GILL MD Common Visit Codes: 00812-FOT/OBS DISCH DAY >30min JUAN GILL MD Mar 20, 2025 15:09
== END 2025-03-20 14:15 | disposition home or self-care (01) | DRG 254 ==
LOC: ER 22:41 → OVERFLOW 03-18 09:38 → MERGE 03-18 09:38 → CENTRAL 03-18 23:26
PROVIDERS: ADMIT Internal Medicine; ATTEND Internal Medicine
DX: K61.1 Rectal abscess (principal); N17.0 Acute kidney failure with tubular necrosis; K52.9 Noninfective gastroenteritis and colitis, unspecified; E66.811 Obesity, class 1; Z68.30 Body mass index [BMI] 30.0-30.9, adult; E86.0 Dehydration; K59.00 Constipation, unspecified; F17.210 Nicotine dependence, cigarettes, uncomplicated; R65.10 Systemic inflammatory response syndrome (SIRS) of non-infectious origin without acute organ dysfunction
CPT/HCPCS: 36415; 71045; 80048; 80053; 81001; 82565; 83036; 83605; 83690; 85025; 86256; 86671; 87040; 96361; 96365; 99291; G0378; J3490